=== PATIENT | male | born 1945 | race Caucasian/White ===

== ENCOUNTER → 2024-02-19 14:31 | Outpatient (REF) | payer MEDICARE, OTHER, SELFPAY | LOC: HWRAD 14:31 | PROVIDERS: ATTENDING PHYSICIAN Family Medicine | DX: M25.562 Pain in left knee (principal) | CPT/HCPCS: 73564 ==

== ENCOUNTER 2024-08-22 12:58 | Inpatient (IN) | payer MEDICARE, OTHER, SELFPAY ==
[2024-08-22] VITALS (10 sets, daily range): BP systolic 128–143; BP diastolic 58–101; BMI 27.3; BMI 25.6
--- NOTE | 2024-08-22 09:41 | EDRN ---
Dr. Whitten in to see pt at this time.
--- NOTE | 2024-08-22 09:41 | EDRN ---
Alie COLEMAN in room w/pt at this time.
--- NOTE | 2024-08-22 09:42 | ED.GENMED ---
History of Present Illness
General
Chief Complaint: Dizziness
Time Seen by Provider: 08/22/24 09:34
History of Present Illness
History of Present Illness:
Patient presents to the emergency department with vertigo for the past 20 hours. Associated with nausea and inability to ambulate. Denies any numbness weakness tingling. Denies any speech difficulty or visual changes.
If applicable-neuro sx onset
Onset of symptoms known: Yes
Date of onset of symptoms: 08/21/24
Time of onset of symptoms: 13:00
Phy Exam
Physical Exam
Physical Exam:
GENERAL APPEARANCE: Patient in distress, vomiting, well developed/ well nourished
EYES lids/conjunctiva normal
EARS/NOSE/THROAT Mucous membranes moist, uvula midline without oral pharyngeal erythema, exudate or swelling
HEAD/NECK normocephalic atraumatic, neck is supple.
RESPIRATORY respiratory effort normal, speaks in full sentences, no accessory muscle use. Lungs clear to auscultation without rhonchi, wheezes, rales
CARDIAC Regular rate and rhythm, no edema.
ABDOMINAL Soft, ND/NT.
MUSCLES/EXTREMITIES No abnormal range of motion, no swelling.
SKIN Warm, pink and dry. No rashes
NEUROLOGICAL bidirectional nystagmus present, speech is clear and appropriate. Normal level of consciousness. 5/5 strength in all extremities. SILT throughout, no dysmetria, gait not assessed due to patient distress
PSYCH Normal mood and affect. Judgement/competence is appropriate
Course
Orders/Labs/Results
Orders:
Orders
08/22/24 09:43
Electrocardiogram (*1) Stat
Reason for Study: Other
Other Reason for Exam: neuro symptoms
CT Head & Neck Angio W/wo IV Urgent
Comment:
Reason For Exam: persistent vertigo
0.9% Sodium Chloride 1000 ml [Nss] 1,000 ml IV BOLUS
Diphenhydramine [Benadryl] 25 mg 0.9% Sodium Chloride 50 ml [Nss] 50 ml IV ONCE
Metoclopramide [Reglan] 10 mg IV NOW STA
08/22/24 09:48
Diphenhydramine [Benadryl] 25 mg IV NOW STA
08/22/24 10:01
Complete Blood Count/With Diff Urgent
Comprehensive Metabolic Panel Urgent
PTT Urgent
Prothrombin Time Urgent
Troponin I Urgent
Abnormal Lab Results
08/22/24
10:01
MCH 31.1 H pg
(27.0-31.0)
Absolute Neuts (auto) 8.1 H 10^3/uL
(1.4-6.5)
Absolute Lymphs (auto) 0.9 L 10^3/uL
(1.2-3.4)
Neutrophils % 85.0 H %
(42.2-75.2)
Lymphocytes % 9.9 L %
(20.5-51.1)
Glucose 157 H mg/dl
(70-99)
08/22/24 10:01
08/22/24 10:01
Vital Signs
Initial and Last Documented VS:
Initial Vital Signs
Temp Pulse Resp BP Pulse Ox
97.9 F 91 16 143/101 96
08/22/24 09:16 08/22/24 09:16 08/22/24 09:16 08/22/24 09:16 08/22/24 09:16
Last Documented Vital Signs
Temp Pulse Resp BP Pulse Ox
97.9 F 62 16 132/58 97
08/22/24 09:16 08/22/24 11:00 08/22/24 11:00 08/22/24 11:00 08/22/24 11:00
*Critical Care Note
Total Time (30-74mins, 75-104mins- exclusive of procedures): Not Applicable
ED Attending Note
ED Attending Note
ED Attending Note:
Patient with persistent vertigo for 24 hours now. He is unable to ambulate. No other neurologic deficits. CT angio of head and neck without acute process. Given persistent symptoms despite medications, will admit to hospital
-
Portions of this chart may have been created with voice recognition software.� Occasional wrong word or��sound alike� substitutions may have occurred due to the inherent limitations of voice recognition software.
Discharge Plan
Departure
Patient Disposition: Admit
Date of Disposition: 08/22/24
Time of Disposition: 12:26
Admit to: Telemetry
Presentation/result/management discussed w/ accepting MD/DO: Hospitalist
Discharge Problem:
Vertigo
Referrals:
Joel Guevara DO [Family Provider] -
Interventions
Interventions:
*Risk Screen - Suicide Last Done: 08/22/24 10:08
*General Assessment Last Done: 08/22/24 10:08
*Neglect/Abuse Screening Last Done: 08/22/24 10:08
ED- Fall Risk Assessment Last Done: 08/22/24 10:08
*ED COVID-19 Vaccine History Last Done: 08/22/24 10:08
ED- Neurological Assessment Last Done: 08/22/24 10:13
Discharge Date and Time
Print Language: SERBIAN
--- NOTE | 2024-08-22 10:00 | EDRN ---
Pt states he has had vertigo/spinning dizziness worse w/ mobement for tati 20 hours w/ N/V. Pt states he has had a couple of 'short' episodes that dissipated w/out having any need for medication, lasting 3 -4 hrs.
[2024-08-22] MEDS: NSS 1000 IV (10:02)
[2024-08-22] MEDS: BENADRYL 25 MG IV (10:03)
[2024-08-22] MEDS: REGLAN 10 MG IV (10:05)
[2024-08-22 10:16] LABS: % Basophils 0.2 % (0-2); % Immature Granulocytes 0.4 % (0-0.5); % Lymphocytes 9.9 % (20.5-51.1); % Monocytes 4.5 % (1.7-9.3); Absolute Lymphocytes 0.9 10^3/uL (1.2-3.4); Absolute Monocytes 0.4 10^3/uL (0.1-0.6); Absolute Neutrophils 8.1 10^3/uL (1.4-6.5); Hematocrit 42.1 % (39.0-52.0); Hemoglobin 14.8 g/dL (13.0-18.0); Mean Corp Hgb Conc. 35.2 g/dL (33.0-37.0); Mean Corpuscular Hgb 31.1 pg (27.0-31.0); Mean Corpuscular Volume 88.4 fL (80.0-94.0); Mean Platelet Volume 9.4 fL (7.4-10.4); Nucleated Red Blood Cells % 0 % (-); Platelet Count 227 10^3/uL (130-400); Red Blood Cell Count 4.76 10^6/uL (4.70-6.10); Red Cell Dist. Width 12.6 % (11.5-14.5); White Blood Cell Count 9.5 10^3/uL (4.8-10.8)
[2024-08-22 10:25] LABS: INR 1.06; PT 13.7 Sec (11.4-14.6)
--- NOTE | 2024-08-22 10:26 | EDRN ---
Pt intermittently napping at this time.
[2024-08-22 10:28] LABS: ALT (SGPT) 18 U/L (0-50); AST (SGOT) 24 U/L (17-59); Albumin 4.3 g/dl (3.5-5.0); Alkaline Phosphatase 62 U/L (38-126); Blood Urea Nitrogen 20 mg/dl (9-20); Calcium 9.5 mg/dl (8.4-10.2); Carbon Dioxide 25 mmol/L (22-30); Chloride 103 mmol/L (98-107); Estimated Creatinine Clearance 72 ml/min; Glucose 157 mg/dl (70-99); Potassium 3.7 mmol/L (3.5-5.1); Sodium 142 mmol/L (135-145); Total Bilirubin 1.2 mg/dl (0.2-1.3); Total Protein 7.3 g/dl (6.3-8.2); eGFR > 60.00
--- NOTE | 2024-08-22 11:36 | EDRN ---
Pt states nausea is 90% better and dizziness is possibly 25-50% better though needs to get up and walk to see how much better dizziness is.
[2024-08-22 11:42] LABS: Troponin I < 0.012 ng/ml
--- NOTE | 2024-08-22 12:46 | EDRN ---
Pt states dizziness remains at only improved tati 25-50% but nausea remains 90% improved. Pt passed swallow test and trying to drink some water at this time.
--- NOTE | 2024-08-22 12:51 | HPS.HSE ---
Family Physician
-
Family Physician: Joel Guevara, DO
Chief Complaint
-
vertigo
History of Present Illness
79-year-old male past medical history of hypertension, hypercholesteremia, BPH, presenting with vertigo over the past 20 hours associate with nausea and multiple episodes of vomiting. Vertigo is worse with movement or head movements. He had 2
prior episodes most recently a few years ago which resolved by performing the Binh maneuver himself. He denies any recent illness. He has chronic ringing in the left ear which he has had for 3 years. He denies any headache. Denies any visual
symptoms. Denies any focal weakness or numbness or tingling. Denies any speaking or swallowing difficulty.
Medical History
Past Medical History
Past Medical History: Reports Other (hypertension, hypercholesteremia, BPH)
Past Surgical History: Reports None
Social History
Tobacco: Non-smoker
Alcohol: Occasional
Drug: None
Family History
Family History: Other (father parkinsons )
Allergies / Home Medications
Allergies reflects when Allergies were last updated in [employer].
Home Medications with original date entered in [employer]
Allergy/Medication List:
Allergies
Allergy/AdvReac Type Severity Reaction Status Date / Time
No Known Allergies Allergy Unverified 08/22/24 09:21
Review of Systems
-
History Source: Patient
A 12 point ROS was completed and negative except as noted: Yes
Constitutional: Reports No Symptoms
EENT: Reports No Symptoms
Respiratory: Reports No Symptoms
Cardiac: Reports No Symptoms
Abdomen/GI: Reports No Symptoms
: Reports No Symptoms
Musculoskeletal: Reports No Symptoms
Skin: Reports No Symptoms
Neurological: Reports No Symptoms
Endocrine: Reports No Symptoms
Hematologic/Lymphatic: Reports No Symptoms
Psych: Reports No Symptoms
Physical Exam
Vital Signs
Vital Signs
Temp Pulse Resp BP Pulse Ox
97.9 F 77 19 128/72 99
08/22/24 09:16 08/22/24 12:30 08/22/24 12:30 08/22/24 12:00 08/22/24 12:30
Physical Exam
General: Well Developed, Well Nourished and No Apparent Distress
HEENT: NormoCephalic, Moist mucous membranes and Atraumatic
Respiratory: Clear
Cardiac: S1/S2 and Regular Rhythm; No Murmur or Rub
GI: Soft, Non Tender, Non Distended and Normal Bowel Sounds; No Organomegaly
Rectal: Deferred by Provider
Musculoskeletal: No Clubbing, No Cyanosis and No Edema
Skin: No Rash
Neuro: Nonfocal/grossly intact
Laboratory Results
-
08/22/24 10:01
08/22/24 10:01
Laboratory Results
PT 13.7 Sec (11.4-14.6) 08/22/24 10:01
INR 1.06 08/22/24 10:01
APTT 24.0 Sec (23.4-35.0) 08/22/24 10:01
Total Bilirubin 1.2 mg/dl (0.2-1.3) 08/22/24 10:01
AST 24 U/L (17-59) 08/22/24 10:01
ALT 18 U/L (0-50) 08/22/24 10:01
Alkaline Phosphatase 62 U/L (38-126) 08/22/24 10:01
Troponin I < 0.012 ng/ml 08/22/24 10:01
Data Reviewed
-
Lab Data: Labs Reviewed by me
Old Records: Reviewed
Impression/Plan
-
IMPRESSION:
PLAN:
# Acute vertigo likely peripheral secondary to vestibular neuritis versus less likely CVA
# Chronic tinnitus of left ear
# History of peripheral vertigo
-Horizontal nystagmus with leftward gaze without any other neurological deficits
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
-Benadryl, Reglan, IV fluids given with some improvement
-Check MRI brain
-Compazine, Valium as needed
-Vestibular therapy
-May benefit from prednisone
-Neurology consulted
Essential hypertension
Hypercholesterolemia
BPH
DNR/DNI
DVT prophylaxis�SCDs
Regular diet
--- NOTE | 2024-08-22 15:00 | PTCARENOTE ---
Pt received from ED at 1430. Pt ambulated to the room with supervision. Unsteady gait but vertigo is better than it was in ED per pt. No nausea or vomiting at the moment. Pt oriented to the room and the care plan.
[2024-08-22] MEDS: COZAAR 100 MG PO (17:13)
[2024-08-22] MEDS: LIPITOR 10 MG PO (17:14)
[2024-08-22] MEDS: PROSCAR 5 MG PO (17:14)
[2024-08-23 03:41] VITALS: BP 136/65
[2024-08-23 07:00] VITALS: BP 155/72
[2024-08-23 07:06] LABS: % Basophils 0.3 % (0-2); % Eosinophils 0.2 % (0-6); % Immature Granulocytes 0.5 % (0-0.5); % Lymphocytes 24.2 % (20.5-51.1); % Monocytes 7.9 % (1.7-9.3); % Neutrophils 66.9 % (42.2-75.2); Absolute Lymphocytes 2.1 10^3/uL (1.2-3.4); Absolute Monocytes 0.7 10^3/uL (0.1-0.6); Absolute Neutrophils 5.9 10^3/uL (1.4-6.5); Hematocrit 35.1 % (39.0-52.0); Hemoglobin 12.1 g/dL (13.0-18.0); Mean Corp Hgb Conc. 34.5 g/dL (33.0-37.0); Mean Corpuscular Hgb 32.1 pg (27.0-31.0); Mean Corpuscular Volume 93.1 fL (80.0-94.0); Mean Platelet Volume 9.8 fL (7.4-10.4); Nucleated Red Blood Cells % 0 % (-); Platelet Count 197 10^3/uL (130-400); Red Blood Cell Count 3.77 10^6/uL (4.70-6.10); Red Cell Dist. Width 12.8 % (11.5-14.5); White Blood Cell Count 8.8 10^3/uL (4.8-10.8)
[2024-08-23 07:35] LABS: ALT (SGPT) 15 U/L (0-50); AST (SGOT) 19 U/L (17-59); Albumin 3.4 g/dl (3.5-5.0); Alkaline Phosphatase 44 U/L (38-126); Blood Urea Nitrogen 26 mg/dl (9-20); Calcium 8.8 mg/dl (8.4-10.2); Carbon Dioxide 26 mmol/L (22-30); Chloride 104 mmol/L (98-107); Estimated Creatinine Clearance 64 ml/min; Glucose 100 mg/dl (70-99); Potassium 3.7 mmol/L (3.5-5.1); Sodium 140 mmol/L (135-145); eGFR > 60.00
[2024-08-23] MEDS: NORVASC 5 MG PO (08:51)
[2024-08-23] MEDS: VITAMIN D3 (cholecalciferol) 25 MCG PO (08:51)
[2024-08-23] MEDS: ANTIVERT 12.5 MG PO ×2 (08:54→15:14)
--- NOTE | 2024-08-23 10:38 | W.PN.HOSP.TC ---
Today's Communication/Plan
-
f/w neurology recommendations
likely dc later today if ok with neurology
Assessment / Plan
Assessment / Plan
Physical Exam
General: Well Developed, Well Nourished and No Apparent Distress
HEENT: NormoCephalic, Moist mucous membranes and Atraumatic
Respiratory: Clear
Cardiac: S1/S2 and Regular Rhythm; No Murmur or Rub
GI: Soft, Non Tender, Non Distended and Normal Bowel Sounds; No Organomegaly
Rectal: Deferred by Provider
Musculoskeletal: No Clubbing, No Cyanosis and No Edema
Skin: No Rash
Neuro: Nonfocal/grossly intact
#Acute vertigo likely peripheral secondary to vestibular neuritis
# Chronic tinnitus of left ear
His vertigo is better
No N/V, able to tolerate diet now
Will check with PT/OT
c/w TID Meclizine
MRI no acute stroke
likely Vestibular vertigo, recommend OP ENT follow up
Neurology input appreciated.
# MRI showed
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
Follow-up with the primary care doctor. Start antiplatelet therapy with aspirin.
#Essential hypertension
#Hypercholesterolemia
#BPH
DNR/DNI
DVT prophylaxis�SCDs
Regular diet
Total discharge time spent to see the patient on the floor, examine the patient, review data and lab results, discuss discharge plan with patient, nursing staff around 65 minutes
Anticipated Discharge: Today
Subjective/Interval History
-
Date of Service: August 23, 2024
Feels better
no N/V this morning
Objective Data
-
Labs:
Laboratory Results
08/23/24
05:53
WBC 8.8
Hgb 12.1 L
Hct 35.1 L
Plt Count 197
Sodium 140
Potassium 3.7
Chloride 104
Carbon Dioxide 26
BUN 26 H
Creatinine 0.9
Glucose 100 H
Calcium 8.8
Total Bilirubin 1.0
AST 19
ALT 15
Alkaline Phosphatase 44
Vital Signs:
Vital Signs
Temp Pulse Resp BP Pulse Ox
97.4 F 59 18 155/72 98
08/23/24 07:00 08/23/24 07:00 08/23/24 07:00 08/23/24 07:00 08/23/24 07:00
[2024-08-23 11:51] VITALS: BP 165/69; PULSE 66; O2SAT 97
--- NOTE | 2024-08-23 14:27 | CM ---
Roger was admitted for vertigo which is likely due to vestibular neuritis. He lives with his in a 1 story home with 3 entry steps. [employer] he has been (I) amb and adl's, no DME in the home, no history of VN.
Potential discharge later today; no needs identified for discharge.
[2024-08-23 15:00] VITALS: BP 145/84
--- NOTE | 2024-08-23 15:17 | CON.NEURO4 ---
Consultation - Neurology 4
-
CONSULTING PHYSICIAN: Klever Lorenzana MD (Neurology)
REFERRING PHYSICIAN: Hospitalist
DICTATED BY: Klever Lorenzana
DATE/TIME OF REQUEST: 08/22/2024
DATE/TIME OF CONSULTATION: 08/23/2024
Reason for Consultation: Vertigo
History of Present Illness: This is a 79 year old right) handed (male who has presented to the hospital with (chief complaint) of dizziness. he gives a h/o hypertension, hypercholesteremia, BPH, presenting with vertigo over the past 20 hours
associate with nausea and multiple episodes of vomiting. Vertigo is worse with movement or head movements. He had two similar episodes a few years ago which resolved by performing the Binh maneuver himself. First episode was five years ago
followed by persistent tinnitus. second episode was 3 years. Yesterday he had gone to [facility] and was taking a stroll when this occurred without warning. He managed to get to the train station and was able to return home in [place].
He denies any recent illness. He has chronic ringing in the left ear which he has had for 5 years. He denies any headache. Denies any visual symptoms. Denies any focal weakness or numbness or tingling. Denies any speaking or swallowing
difficulty.
Today symptoms have resolved with bed rest.
I have advised him that he will continue to have these episodes in the future and the best remedy is to lie or sit still. he will continue to take bed rest for hours if not days should it happen in the future
Past Medical History: As above
Surgical History: NC
Family History: No h/o migraine
Social History: lives at home
Allergies: NKA
Home Medications: See addendum
Review of Symptoms:
Patient denies any fever, headache, chest pain, shortness of breath, GI or symptoms.
�Per the HPI.�All systems are reviewed negative except above.
�
Vital Signs:
The patient has
Temp Pulse Resp BP Pulse Ox
36.3 C 59 18 155/72 98
08/23/24 07:00 08/23/24 07:00 08/23/24 07:00 08/23/24 07:00 08/23/24 07:00
Physical Exam:
The patient is afebrile, heart sounds S1 and S2 are (regular , and chest is clear to auscultation bilaterally.
Neurologic Examination:
The patient is awake, alert and oriented x 3. (He is able to follow commands and answer questions appropriately. There is no aphasia or dysarthria.
On cranial nerve assessment, pupils are 3 mm bilateral, round and reactive to light and accommodation. Visual riddle are full. Extraocular movements are intact. Facial sensations are intact and bilaterally symmetrical, there is no facial asymmetry.
Hearing is intact bilaterally to normal conversation volume. Tongue palate and uvula are midline. Sternocleidomastoid strengths are full bilaterally.
Motor strengths are 5/5 bilateral upper and lower extremities on medical research [place] scale. There is no drift or involuntary movement noted.
Deep tendon reflexes are + bilateral upper and lower extremities and Babinski is absent bilaterally.
Sensations of pain, touch, temperature and vibration are intact and bilaterally symmetrical. There was no extinction noted on double simultaneous stimulation. Coordination is intact by finger to nose bilaterally. Rombergs +. Gait is assisted.
Lab Results: See addendum
Neuro Imaging: MRI head Atrophy. Small vessel disease of cerebellum, Hypoplastic vertebrobasilar
Impression:
(Mr. ANN ALONZO is a 79 year old M who has presented to the hospital with (symptoms/chief complaint). of vertigo
Differentials for the patient's presentation include:
1. Benign positional vertigo
2. Vertebrobasilar insufficiency
Recommendations:
1. Meclizine 25mg prn q6
2. Aspirin 81mg QOD
3. BP management
4. ENT eval
5. B12 level
6. Ativan 0.5 mg prn
Discussed patient care with: Hospitalist
Allergies
-
Allergies
Allergy/AdvReac Type Severity Reaction Status Date / Time
No Known Allergies Allergy Unverified 08/22/24 09:21
Vital Signs and Labs
-
Vital Signs and Labs:
Vital Signs
Temp Pulse Resp BP Pulse Ox
36.3 C 59 18 155/72 98
08/23/24 07:00 08/23/24 07:00 08/23/24 07:00 08/23/24 07:00 08/23/24 07:00
Lab Results
08/23/24 05:53
08/23/24 05:53
PT 13.7 Sec (11.4-14.6) 08/22/24 10:01
INR 1.06 08/22/24 10:01
APTT 24.0 Sec (23.4-35.0) 08/22/24 10:01
Sodium 140 mmol/L (135-145) 08/23/24 05:53
Potassium 3.7 mmol/L (3.5-5.1) 08/23/24 05:53
BUN 26 mg/dl (9-20) H 08/23/24 05:53
Glucose 100 mg/dl (70-99) H 08/23/24 05:53
Calcium 8.8 mg/dl (8.4-10.2) 08/23/24 05:53
Medications
-
Active Medications
Generic Name Dose Route Start Last Admin
Trade Name Freq PRN Reason Stop Dose Admin
Amlodipine Besylate 5 mg 08/23/24 08:00 08/23/24 08:51
Amlodipine 5 Mg Tablet PO 09/20/24 07:59 5 mg
DAILY IRENE Administration
Aspirin 81 mg 08/24/24 08:00
Aspirin 81 Mg Chewable Tablet PO 09/21/24 07:59
DAILY IRENE
Atorvastatin Calcium 10 mg 08/22/24 18:00 08/22/24 17:14
Atorvastatin (Lipitor) 10 Mg Tablet PO 09/19/24 17:59 10 mg
QPM IRENE Administration
Cholecalciferol 25 mcg 08/23/24 08:00 08/23/24 08:51
Cholecalciferol (Vitamin D3) 25 Mcg Tablet (1,000 Units) PO 09/20/24 07:59 25 mcg
DAILY IRENE Administration
Diazepam 2 mg 08/22/24 14:17
Diazepam 2 Mg Tablet PO 09/19/24 14:16
TIDPRN PRN
vertigo
Finasteride 5 mg 08/22/24 18:00 08/22/24 17:14
Finasteride 5 Mg Tablet PO 09/19/24 17:59 5 mg
QPM IRENE Administration
Losartan Potassium 100 mg 08/22/24 18:00 08/22/24 17:13
Losartan 100 Mg Tablet PO 09/19/24 17:59 100 mg
QPM IRENE Administration
Meclizine HCl 12.5 mg 08/23/24 08:20 08/23/24 15:14
Meclizine 12.5 Mg Tablet PO 09/20/24 08:19 12.5 mg
TID IRENE Administration
Prochlorperazine Edisylate 10 mg 08/22/24 14:17
Prochlorperazine 10 Mg/2 Ml Vial IV 09/19/24 14:16
Q6HPRN PRN
nausea
Sodium Chloride 0 flush 08/22/24 15:00
Sodium Chloride 0.9% (Flush) Syringe IV 09/19/24 14:59
PER PROTOCOL IRENE
Home Medications
�Medication �Instructions �Recorded
amlodipine 5 mg tablet 5 mg PO DAILY Blood Pressure 08/22/24
cholecalciferol (vitamin D3) 25 25 mcg PO DAILY Supplement 08/22/24
mcg (1,000 unit) tablet
finasteride 5 mg tablet 5 mg PO QPM Urinary Issue 08/22/24
losartan 100 mg tablet 100 mg PO QPM Blood Pressure 08/22/24
oregano oil 1 tab PO DAILY Supplement 08/22/24
simvastatin 20 mg tablet 20 mg PO QPM High Cholesterol 08/22/24
aspirin 81 mg chewable tablet 81 mg PO DAILY #30 tabs 08/23/24
meclizine 25 mg tablet 25 mg PO BID PRN dizziness #10 tabs 08/23/24
--- NOTE | 2024-08-23 16:18 | W.DCSUMMARY ---
Discharge Summary
Discharge Data
Date of Admission: 08/22/24
Date of Discharge: 08/23/24
-
Pending Results: No
Hospital Course
79 years old male presented with sudden onset of vertigo patient had history of vertigo. He complained of nausea and vomiting with worsening of his vertigo with movement and walking. He denied headache. No visual disturbances or respiratory
symptoms. No chest pain. No slurred speech or neck rigidity. He did not have leukocytosis. Head and neck angiogram showed no acute infarct. Patient was admitted for observation. He was seen by neurologist. MRI of the brain showed no evidence
of acute infarct or intracranial hemorrhage but positive for small chronic ischemic infarcts/white matter leukoaraiosis with mild diffuse cerebellar and cerebellar volume loss. Neurologist recommended low-dose aspirin daily for preventative
measures and meclizine as needed. Patient started to improve. He remained hemodynamically stable. He was able to ambulate. Physical therapy recommended vestibular rehab. He tolerated diet without nausea or vomiting. Patient was advised to
follow-up with ENT specialist for hearing test as patient reported history of ringing in the ear for few years. Patient was discharged home in a stable condition
Discharge Plan
-
Patient Disposition: Home (Routine Discharge)
Discharge Diagnosis/Procedures: Vertigo
You were seen by neurologist. Recommended meclizine as needed and aspirin for secondary preventative therapy
Diet: As tolerated
Referrals:
Joel Guevara DO [Family Provider] -
Hailey Piña MD [Active] - in two to three weeks
Prescriptions:
New
aspirin 81 mg Tablet,Chewable
81 mg PO DAILY Qty: 30 0RF
meclizine 25 mg tablet
25 mg PO BID PRN (Reason: dizziness) Qty: 10 0RF
Continued
amlodipine 5 mg tablet
5 mg PO DAILY
simvastatin 20 mg tablet
20 mg PO QPM
losartan 100 mg tablet
100 mg PO QPM
finasteride 5 mg tablet
5 mg PO QPM
cholecalciferol (vitamin D3) 25 mcg (1,000 unit) Tablet
25 mcg PO DAILY
oregano oil
1 tab PO DAILY
Discharge Orders:
Discharge Patient (As Directed); Ordered 08/23/24
Ordered By: Colleen Perez
Discharge Date and Time
Print Language: LATVIAN
== END 2024-08-23 16:36 | disposition home or self-care (01) | DRG 149 ==
LOC: 4 EAST ACU 12:58
PROVIDERS: ADMITTING PHYSICIAN Hospitalist; ATTENDING PHYSICIAN Internal Medicine; CONSULT PHYSICIAN Psychiatry & Neurology Neurology; EMERGENCY PHYSICIAN Emergency Medicine; FAMILY PHYSICIAN Family Medicine
DX: H81.10 Benign paroxysmal vertigo, unspecified ear (principal); I65.02 Occlusion and stenosis of left vertebral artery; I10 Essential (primary) hypertension; Z66 Do not resuscitate; E78.00 Pure hypercholesterolemia, unspecified; N40.0 Benign prostatic hyperplasia without lower urinary tract symptoms; H93.12 Tinnitus, left ear; H55.09 Other forms of nystagmus; Z82.0 Family history of epilepsy and other diseases of the nervous system; Z86.73 Personal history of transient ischemic attack (TIA), and cerebral infarction without residual deficits; Z79.82 Long term (current) use of aspirin; Z79.899 Other long term (current) drug therapy
CPT/HCPCS: 70496; 70498; 70553; 80053; 84484; 85025; 85610; 85730; 93005; 96361; 96374; 96375; 97116; 97162; 99285; A9575; Q9967